=== PATIENT | female | born 1985 | race Caucasian/White ===

== ENCOUNTER 2016-11-03 03:34 | Emergency (ER) | payer BC ==
[~2016-11-03] VITALS: Ht 154.9 cm; Wt 65.8 kg
--- NOTE | 2016-11-03 03:49 | NUR ---
DR. BELTRAN AT BEDSIDE FOR MSE.
--- NOTE | 2016-11-03 04:06 | NUR ---
[employer] AT BEDSIDE.
[2016-11-03 04:10] LABS: BASOPHILS # (AUTO) 0.1 K/uL (0.0-8.0); EOSINOPHILS # (AUTO) 0.2 K/uL (0.0-0.7); EOSINOPHILS % (AUTO) 1.2 % (0.0-7.0); HEMATOCRIT 50.5 % (37-47); HEMOGLOBIN 17.1 G/DL (12.0-16.0); LYMPHOCYTES # (AUTO) 5.6 K/UL (0.8-4.8); LYMPHOCYTES % (AUTO) 39.2 % (20.5-51.5); MEAN CORPUSCULAR HEMOGLOBIN 32.1 UUG (27.0-31.0); MEAN CORPUSCULAR HGB CONC 34 g/dL (32.0-37.0); MEAN CORPUSCULAR VOLUME 94.7 FL (81.0-99.0); MONOCYTES # (AUTO) 1.2 K/UL (0.1-1.30); MONOCYTES % (AUTO) 8.7 % (0.0-11.0); NEUTROPHILS # (AUTO) 7.2 K/UL (1.8-8.9); NEUTROPHILS % (AUTO) 49.9 % (38.5-71.5); PLATELET COUNT (AUTO) 276 K/UL (150-450); RED BLOOD CELL COUNT(AUTO) 5.34 MIL/UL (4.2-5.4); WHITE BLOOD COUNT (AUTO) 14.3 K/UL (4.0-11.2)
[2016-11-03 04:22] LABS: BILIRUBIN,DIRECT 0.1 mg/dL (0.0-0.2); BILIRUBIN,TOTAL 0.3 mg/dL (0.2-1.0); POTASSIUM 3.4 mmol/L (3.5-5.1); TOTAL PROTEIN, SERUM 7.7 g/dL (6.4-8.2)
[2016-11-03] MEDS ORDERED: IV NORMAL SALINE 1000 ML BAG IV ONE (05:15)
--- NOTE | 2016-11-03 07:12 | NUR ---
REPORT GIVEN TO YUDY FUENTES
--- NOTE | 2016-11-03 07:15 | NUR ---
[employer]frame Applications Developer assumes care- patient is for discharge when more alert per Dr Patel & previous RN's hands off report. Patient is resting comfortably in bed with eyes closed, easily arousable, respiration :easy, NAD.
--- NOTE | 2016-11-03 08:08 | NUR ---
IV removed. Catheter intact and site benign. Pressure and 4x4 gauze applied to site. No bleeding noted. Patient did her own am care (brush her teeth, wash her face & fix her hair). Patient discharged to home in stable conditon. Written and verbal after care instructions given to patient. Patient verbalizes understanding of instructions. Patient is AOx4, ambulated with steady gait to the waiting room, drinkling iced water, denies any discomfort@this time. Patient says she has money at home to pay for her taxi ride. Nursing wood room supervisor Rebeka is with the patient.
== END 2016-11-03 08:14 | disposition home or self-care (01) ==
LOC: ER 03:34
DX: T40.1X1A Poisoning by heroin, accidental (unintentional), initial encounter (principal); E86.0 Dehydration; J96.00 Acute respiratory failure, unspecified whether with hypoxia or hypercapnia; F17.210 Nicotine dependence, cigarettes, uncomplicated; Y92.9 Unspecified place or not applicable
CPT/HCPCS: 36415; 70450; 71010; 84703; 85025; A4663; J7030

== ENCOUNTER 2022-09-17 11:55 | Emergency (ER) | payer BC, MEDICAID ==
[~2022-09-17] VITALS: Ht 154.9 cm; Wt 72.6 kg
[2022-09-17 12:59] LABS: *BLOOD, URINE 1+ (NEGATIVE); *CLARITY,URINE CLEAR (CLEAR); *COLOR,URINE RED (YELLOW); *KETONES,URINE 1+ (NEGATIVE); *UROBILINOGEN,URINE >=8.0 E.U./dl (NORMAL); LEUKOCYTE ESTERASE ,URINE 3+ (NEGATIVE); NITRITE, URINE POSITIVE (NEGATIVE)
[2022-09-17] MEDS ORDERED: IV NORMAL SALINE 1000 ML BAG IV ONE (13:00)
[2022-09-17] MEDS ORDERED: DEXAMETHASONE SOD PHOSPHATE 4 MG INJ IV ONE (13:00)
[2022-09-17] MEDS ORDERED: METOCLOPRAMIDE HCL 10 MG/2 ML VIAL IV ONE (13:00)
[2022-09-17] MEDS ORDERED: KETOROLAC TROMETHAMINE 15 MG INJ IVP ONE (13:00)
[2022-09-17] MEDS ORDERED: CEFTRIAXONE 1 G in IV DEXTROSE 5% 50 ML IV ONE (13:00)
[2022-09-17 13:14] LABS: *BILIRUBIN,URIN 2+ (NEGATIVE); UGLUCOSE 1+ (NEGATIVE)
[2022-09-17 13:25] LABS: BACTERIA,URINE MODERATE /HPF (NONE SEEN); COARSE GRANULAR CASTS,URINE 0-3 /LPF; WBC,URINE 80-100 /HPF (0-3)
[2022-09-17 13:26] LABS: CARBON DIOXIDE 21 mmol/L (21-32); CHLORIDE 103 mmol/L (98-107); CREATININE 0.8 mg/dL (0.6-1.3); POTASSIUM 4.1 mmol/L (3.5-5.1); UREA NITROGEN, BLOOD 8 mg/dL (7-18)
[2022-09-17 13:35] LABS: ALANINE AMINOTRANSFERASE 47 U/L (14-59); ALKALINE PHOSPHATASE 78 U/L (50-136); ASPARTATE AMINOTRANSFERASE 27 U/L (15-37); BILIRUBIN,DIRECT 0.1 mg/dL (0.0-0.2); BILIRUBIN,TOTAL 0.4 mg/dL (0.2-1.0); TOTAL PROTEIN, SERUM 6.6 g/dL (6.4-8.2)
[2022-09-17] MEDS ORDERED: CEFTRIAXONE /D5W 50ML IVPB **ER PYXIS IV ONE (13:36)
[2022-09-17] MEDS ORDERED: DEXAMETHASONE SOD PHOSPHATE 4 MG INJ ONE (13:36)
[2022-09-17] MEDS ORDERED: METOCLOPRAMIDE HCL 10 MG/2 ML VIAL ONE (13:37)
[2022-09-17] MEDS ORDERED: KETOROLAC TROMETHAMINE 15 MG INJ ONE (13:37)
[2022-09-17 13:39] LABS: MEAN CORPUSCULAR HEMOGLOBIN 32.9 uug (24.7-32.8); MEAN CORPUSCULAR VOLUME 99.2 fL (75.5-95.3); PLATELET COUNT (AUTO) 221 K/uL (179-408)
[2022-09-17 14:03] LABS: LIPASE 35 U/L (73-393)
[2022-09-17] MEDS ORDERED: CEPH500C2 PO (15:09)
--- NOTE | 2022-09-17 16:12 | NUR ---
Removed IV intact, site okay, bandaged. Gave pt RX and d/c instructions, pt verbalized understanding. States she feels much better
[2022-09-17 16:32] VITALS: BP 122/78; O2SAT 95
== END 2022-09-17 16:25 | disposition home or self-care (01) ==
LOC: ER 11:55
DX: N10 Acute pyelonephritis (principal); F17.210 Nicotine dependence, cigarettes, uncomplicated; R10.2 Pelvic and perineal pain; R07.89 Other chest pain; Z79.899 Other long term (current) drug therapy
CPT/HCPCS: 99285; 74176; 96365; 96375; 71045; 80076; 80048; 81001; 83690; 85025; 84145; 85730; 87040 ×3; 84484; 84702; 36415; 93005; 83605; J0696; J1100; J1885; J2765; J7040; A4663